=== PATIENT | male | born 1955 | race Caucasian/White ===

== ENCOUNTER 2019-01-25 09:27 | Day surgery (SDC) | payer BC ==
[~2019-01-25 09:27] MED LIST: LIDOCAINE HCL 1% MPF 30 SOL ONE; PROPOFOL 500 MG/50 ML EMU IV ONE
[2019-01-25 11:30] VITALS: TEMP 98
[2019-01-25 12:00] VITALS: BP 131/80; PULSE 60; RESP 18; O2SAT 99
== END 2019-01-25 12:28 | disposition home or self-care (01) ==
LOC: SURG 09:27
PROVIDERS: ATTEND Surgery
DX: Z12.11 Encounter for screening for malignant neoplasm of colon (principal); Z80.0 Family history of malignant neoplasm of digestive organs; K57.32 Diverticulitis of large intestine without perforation or abscess without bleeding; D12.3 Benign neoplasm of transverse colon
CPT/HCPCS: 99001; J2001; J2704